=== PATIENT | female | born 1975 | race Caucasian/White ===

== ENCOUNTER 2021-10-03 10:47 | Inpatient (IN) | payer MEDICAID, OTHER ==
[~2021-10-03] VITALS: Ht 162.6 cm; Wt 73.2 kg
[~2021-10-03 10:47] MED LIST: BENZ1TAB10 PO; LURA80TA2 PO; RISP2TAB45 PO
[2021-10-03 12:35] LABS: BASOPHILS % (AUTO) 0.5 % (0.0-2.0); EOSINOPHILS % (AUTO) 0.2 % (1.0-6.0); LYMPHOCYTES # (AUTO) 2.6 K/uL (1.0-4.8); LYMPHOCYTES % (AUTO) 24.8 % (22.0-44.0); MEAN CORPUSCULAR HEMOGLOBIN 29.2 pg (26.0-34.0); MEAN CORPUSCULAR HGB CONC 34.3 G/dL (31.0-37.0); MEAN CORPUSCULAR VOLUME 85 fL (80-100); MONOCYTES # (AUTO) 0.8 K/uL (0.1-1.0); MONOCYTES % (AUTO) 8.1 % (2.0-9.0); NEUTROPHILS # (AUTO) 6.9 K/uL (1.8-7.7); NEUTROPHILS % (AUTO) 66.4 % (40.0-70.0); PLATELET COUNT (AUTO) 516 K/uL (150-450); RED BLOOD CELL COUNT(AUTO) 4.45 MIL/uL (4.00-5.20); RED CELL DISTRIBUTION WIDTH 15.7 % (11.5-14.5)
[2021-10-03 12:41] LABS: COVID AG,FIA SOURCE NASOPHARYNGEAL
[2021-10-03 12:43] LABS: ANION GAP 9 mmol/L (8-16); CALCIUM, TOTAL 9.4 mg/dL (8.8-10.5); CARBON DIOXIDE 25 mmol/L (22-29); CHLORIDE 106 mmol/L (98-107); CREATININE 1.03 mg/dL (0.60-1.30); GLOMERULAR FILTR. RATE CALC 58 mL/min (>60); GLUCOSE,RANDOM 113 mg/dL (70-110); POTASSIUM 3.8 mmol/L (3.5-5.1); SODIUM SERUM 140 mmol/L (136-145); UREA NITROGEN, BLOOD 12 mg/dL (7-18)
[2021-10-03 12:47] LABS: ACETAMINOPHEN < 2 mcg/mL (10-30)
[2021-10-03 12:54] LABS: ALANINE AMINOTRANSFERASE 65 U/L (12-78); ALKALINE PHOSPHATASE 83 U/L (46-116); ASPARTATE AMINOTRANSFERASE 42 U/L (15-37); BILIRUBIN,TOTAL 0.7 mg/dL (0.1-1.0); HCG,QUANTITATIVE < 1 mIU/mL (0-6); TOTAL PROTEIN, SERUM 8.1 g/dL (6.4-8.2)
[2021-10-03 12:56] LABS: SALICYLATE < 2.8 mg/dL (2.8-20.0)
[2021-10-03] MEDS ORDERED: BUSP5TAB20 PO (13:13)
[2021-10-03] MEDS ORDERED: TRAZ-252 PO (13:13)
[2021-10-03] MEDS ORDERED: PROP10TA73 PO (13:13)
[2021-10-03] MEDS ORDERED: BENZ2TAB10 PO (13:13)
[2021-10-03] MEDS ORDERED: HYDR-4808 PO (13:13)
[2021-10-03] MEDS ORDERED: HALOPERIDOL 5 MG TABLET PO ONE ×2 (13:30)
[2021-10-04 06:08] LABS: APPEARANCE,URINE SL CLOUDY (CLEAR); BILIRUBIN,URINE PRELIM. POSITIVE (NEGATIVE); GLUCOSE, URINE (UA) NEGATIVE (NEGATIVE); KETONES,URINE 40 mg/dL (NEGATIVE); LEUKOCYTE ESTERASE ,URINE NEGATIVE (NEGATIVE); NITRATE,URINE NEGATIVE (NEGATIVE); OCCULT BLOOD,URINE NEGATIVE (NEGATIVE); PROTEIN,URINE TRACE (NEGATIVE)
[2021-10-04 06:14] LABS: BACTERIA,URINE Few /HPF (None Seen); MUCUS,URINE Moderate LPF (None Seen); RBC,URINE 0-2 /HPF (0-2); SQUAMOUS EPITHELIAL CELL,UR Moderate /LPF (None Seen); WBC,URINE 0-2 /HPF (0-5)
[2021-10-04 06:41] LABS: AMPHET/METH SCREEN,URINE POSITIVE (NEGATIVE); BARBITURATE SCREEN, URINE NEGATIVE (NEGATIVE); BENZODIAZEPINES SCREEN,URINE NEGATIVE (NEGATIVE); CANNABINOID SCREEN,URINE POSITIVE (NEGATIVE); COCAINE SCREEN,URINE NEGATIVE (NEGATIVE); METHADONE SCREEN, URINE NEGATIVE (NEGATIVE); OPIATE SCREEN,URINE NEGATIVE (NEGATIVE)
[2021-10-04 06:47] LABS: PHENCYCLIDINE SCREEN,URINE NEGATIVE (NEGATIVE)
[2021-10-04 07:25] LABS: CHOL/HDL RATIO 3.7 (3.9-5.7); FREE T4 (FREE THYROXINE) 1.12 ng/dL (0.76-1.46); THYROID STIMULATING HORMONE 1.48 uIU/mL (0.36-3.74)
[2021-10-04] MEDS: LORazepam 2 MG TABLET PO PRN (17:35)
[2021-10-04] MEDS: HALOPERIDOL 5 MG TABLET PO PRN (17:35)
[2021-10-04 18:35] VITALS: BP 106/74
[2021-10-05] MEDS ORDERED: DOCUSATE SODIUM 100 MG CAPSULE PO PRN (07:15)
[2021-10-05] MEDS ORDERED: PETROLATUM,WHITE 28 GM JELLY TP PRN (07:15)
[2021-10-05] MEDS ORDERED: CloNIDine HCL 0.1 MG TABLET PO PRN (07:15)
[2021-10-05] MEDS ORDERED: ONDANSETRON HCL 4 MG TABLET PO PRN (07:15)
[2021-10-05] MEDS ORDERED: BENZOCAINE/MENTHOL LOZENGE PO PRN (07:15)
[2021-10-05] MEDS ORDERED: BACITRACIN 28 GM OINTMENT TP PRN (07:15)
[2021-10-05] MEDS ORDERED: LOPERAMIDE HCL 2 MG CAPSULE PO PRN (07:15)
[2021-10-05] MEDS ORDERED: ALBUTEROL SULFATE HFA 90 MCG/PUFF 8 GM INHALER IH PRN (07:15)
[2021-10-05] MEDS ORDERED: IBUPROFEN 600 MG TABLET PO PRN (07:15)
[2021-10-05] MEDS ORDERED: OMEPRAZOLE 20 MG CAPSULE PO PRN (07:15)
[2021-10-05] MEDS ORDERED: ACETAMINOPHEN 325 MG TABLET PO PRN (07:15)
[2021-10-05 08:00] VITALS: BP 111/76
[2021-10-05] MEDS: NICOTINE 21 MG/24 HOUR PATCH TD SCH (08:55)
[2021-10-05 17:16] VITALS: BP 102/68
[2021-10-05] MEDS: RisperiDONE MICROSPHERES 50 MG/2 ML SYRINGE IM SCH (18:15)
[2021-10-06] MEDS: NICOTINE 21 MG/24 HOUR PATCH TD SCH (08:25)
[2021-10-06 08:54] VITALS: BP 105/72
[2021-10-06 16:06] VITALS: BP 123/74
[2021-10-07 08:02] VITALS: BP 123/78
[2021-10-07] MEDS: ASPIRIN 81 MG DR TABLET PO SCH ×2 (10:52→16:06)
[2021-10-07] MEDS: NICOTINE 21 MG/24 HOUR PATCH TD SCH (10:53)
[2021-10-07 16:16] VITALS: BP 103/73
[2021-10-08 08:49] VITALS: BP 102/62
[2021-10-08] MEDS: ASPIRIN 81 MG DR TABLET PO SCH ×2 (09:00→16:22)
[2021-10-08] MEDS: NICOTINE 21 MG/24 HOUR PATCH TD SCH (09:01)
[2021-10-08 16:28] VITALS: BP 98/48
[2021-10-09 08:46] VITALS: BP 102/62
[2021-10-09] MEDS: NICOTINE 21 MG/24 HOUR PATCH TD SCH (09:00)
[2021-10-09] MEDS: ASPIRIN 81 MG DR TABLET PO SCH ×2 (09:00→16:10)
[2021-10-09] MEDS ORDERED: FLUCONAZOLE 150 MG TABLET PO ONE (10:00)
[2021-10-09 13:54] LABS: COVID AG,FIA SOURCE NASOPHARYNGEAL
[2021-10-09 16:58] VITALS: BP 155/63
[2021-10-09] MEDS: MAGNESIUM HYDROXIDE SUSPENSION 30 ML UDCUP PO PRN (17:45)
[2021-10-10] MEDS: ASPIRIN 81 MG DR TABLET PO SCH ×2 (08:47→16:12)
[2021-10-10] MEDS: NICOTINE 21 MG/24 HOUR PATCH TD SCH (08:47)
[2021-10-10 10:53] VITALS: BP 112/75
[2021-10-10] MEDS: MAGNESIUM HYDROXIDE SUSPENSION 30 ML UDCUP PO PRN (16:12)
[2021-10-10 16:55] VITALS: BP 99/69
[2021-10-11 08:00] VITALS: BP 132/82
[2021-10-11] MEDS: ASPIRIN 81 MG DR TABLET PO SCH ×2 (08:59→16:47)
[2021-10-11] MEDS: NICOTINE 21 MG/24 HOUR PATCH TD SCH (09:00)
[2021-10-11 16:00] VITALS: BP 116/70
[2021-10-11] MEDS: MAGNESIUM HYDROXIDE SUSPENSION 30 ML UDCUP PO PRN (17:07)
[2021-10-12 08:07] VITALS: BP 111/67
[2021-10-12] MEDS: ASPIRIN 81 MG DR TABLET PO SCH ×2 (09:46→16:09)
[2021-10-12] MEDS: NICOTINE 21 MG/24 HOUR PATCH TD SCH (09:47)
[2021-10-12 11:58] LABS: BASOPHILS % (AUTO) 0.4 % (0.0-2.0); EOSINOPHILS % (AUTO) 1.3 % (1.0-6.0); HEMATOCRIT 38.4 % (36-46); HEMOGLOBIN 12.9 g/dL (12.0-16.0); LYMPHOCYTES # (AUTO) 1.5 K/uL (1.0-4.8); LYMPHOCYTES % (AUTO) 21.3 % (22.0-44.0); MEAN CORPUSCULAR HEMOGLOBIN 29.2 pg (26.0-34.0); MEAN CORPUSCULAR HGB CONC 33.6 G/dL (31.0-37.0); MEAN CORPUSCULAR VOLUME 87 fL (80-100); MONOCYTES # (AUTO) 0.6 K/uL (0.1-1.0); MONOCYTES % (AUTO) 8.5 % (2.0-9.0); NEUTROPHILS % (AUTO) 68.5 % (40.0-70.0); PLATELET COUNT (AUTO) 363 K/uL (150-450); RED BLOOD CELL COUNT(AUTO) 4.42 MIL/uL (4.00-5.20); RED CELL DISTRIBUTION WIDTH 16.1 % (11.5-14.5)
[2021-10-12 12:41] LABS: ALANINE AMINOTRANSFERASE 71 U/L (12-78); ALBUMIN 3.8 g/dL (3.4-5.0); ALKALINE PHOSPHATASE 82 U/L (46-116); ANION GAP 9 mmol/L (8-16); ASPARTATE AMINOTRANSFERASE 27 U/L (15-37); BILIRUBIN,TOTAL 0.3 mg/dL (0.1-1.0); CALCIUM, TOTAL 9.3 mg/dL (8.8-10.5); CARBON DIOXIDE 25 mmol/L (22-29); CHLORIDE 104 mmol/L (98-107); CREATININE 0.78 mg/dL (0.60-1.30); GLOMERULAR FILTR. RATE CALC > 60 mL/min (>60); GLUCOSE,RANDOM 96 mg/dL (70-110); PHOSPHORUS 5.3 mg/dL (2.5-4.9); POTASSIUM 4.7 mmol/L (3.5-5.1); SODIUM SERUM 138 mmol/L (136-145); UREA NITROGEN, BLOOD 11 mg/dL (7-18)
[2021-10-12 16:21] VITALS: BP 125/85
[2021-10-12] MEDS: ZOLPIDEM TARTRATE 10 MG TABLET PO PRN (20:38)
[2021-10-13 08:05] VITALS: BP 109/75
[2021-10-13] MEDS: NICOTINE 21 MG/24 HOUR PATCH TD SCH (09:20)
[2021-10-13] MEDS: ASPIRIN 81 MG DR TABLET PO SCH ×2 (09:20→17:00)
[2021-10-13] MEDS: MAG HYDROX/AL HYDROX/SIMETH ES 30 ML SUSPENSION UDCUP PO PRN (14:52)
[2021-10-13 16:43] VITALS: BP 134/76
[2021-10-13] MEDS: ZOLPIDEM TARTRATE 10 MG TABLET PO PRN (20:35)
[2021-10-14 08:15] VITALS: BP 105/66
[2021-10-14] MEDS: NICOTINE 21 MG/24 HOUR PATCH TD SCH (08:51)
[2021-10-14] MEDS: ASPIRIN 81 MG DR TABLET PO SCH ×2 (08:51→16:37)
[2021-10-14] MEDS: MAGNESIUM HYDROXIDE SUSPENSION 30 ML UDCUP PO PRN (09:56)
[2021-10-14 16:42] VITALS: BP 109/79
[2021-10-14] MEDS: ZOLPIDEM TARTRATE 10 MG TABLET PO PRN (20:57)
[2021-10-15 08:00] VITALS: BP 109/69
[2021-10-15] MEDS: ASPIRIN 81 MG DR TABLET PO SCH ×2 (08:22→16:27)
[2021-10-15] MEDS: NICOTINE 21 MG/24 HOUR PATCH TD SCH (08:22)
[2021-10-15 16:42] VITALS: BP 109/69
[2021-10-15] MEDS: ZOLPIDEM TARTRATE 10 MG TABLET PO PRN (20:34)
[2021-10-16 08:11] VITALS: BP 86/52
[2021-10-16] MEDS: ASPIRIN 81 MG DR TABLET PO SCH ×2 (08:36→16:30)
[2021-10-16] MEDS: NICOTINE 21 MG/24 HOUR PATCH TD SCH (08:37)
[2021-10-16 16:00] VITALS: BP 123/78
[2021-10-16 17:54] LABS: COVID AG,FIA SOURCE NASOPHARYNGEAL
[2021-10-17] MEDS: ASPIRIN 81 MG DR TABLET PO SCH ×2 (08:32→16:08)
[2021-10-17] MEDS: NICOTINE 21 MG/24 HOUR PATCH TD SCH (08:33)
[2021-10-17 08:55] VITALS: BP 97/61
[2021-10-17 16:00] VITALS: BP 99/59
[2021-10-17] MEDS: ZOLPIDEM TARTRATE 10 MG TABLET PO PRN (20:02)
[2021-10-18 09:19] VITALS: BP 106/63
[2021-10-18] MEDS: ASPIRIN 81 MG DR TABLET PO SCH ×2 (10:06→16:19)
[2021-10-18] MEDS: NICOTINE 21 MG/24 HOUR PATCH TD SCH (10:07)
[2021-10-18] MEDS: MAG HYDROX/AL HYDROX/SIMETH ES 30 ML SUSPENSION UDCUP PO PRN (13:29)
[2021-10-18 16:47] VITALS: BP 112/71
[2021-10-18] MEDS: ZOLPIDEM TARTRATE 10 MG TABLET PO PRN (20:37)
[2021-10-19 09:32] VITALS: BP 104/56
[2021-10-19] MEDS: ASPIRIN 81 MG DR TABLET PO SCH ×2 (09:47→17:19)
[2021-10-19] MEDS: NICOTINE 21 MG/24 HOUR PATCH TD SCH (09:47)
[2021-10-19] MEDS: RisperiDONE MICROSPHERES 50 MG/2 ML SYRINGE IM SCH (09:52)
[2021-10-19 16:39] VITALS: BP 105/64
[2021-10-20] MEDS: ASPIRIN 81 MG DR TABLET PO SCH ×2 (08:18→17:17)
[2021-10-20] MEDS: NICOTINE 21 MG/24 HOUR PATCH TD SCH (08:19)
[2021-10-20] MEDS: MAGNESIUM HYDROXIDE SUSPENSION 30 ML UDCUP PO PRN (08:31)
[2021-10-20 09:00] VITALS: BP 99/61
[2021-10-20] MEDS: ZOLPIDEM TARTRATE 10 MG TABLET PO PRN (21:10)
[2021-10-20 23:47] LABS: COVID AG,FIA SOURCE NASAL SWAB
[2021-10-21 08:00] VITALS: BP 103/55
[2021-10-21] MEDS: ASPIRIN 81 MG DR TABLET PO SCH ×2 (09:29→16:54)
[2021-10-21] MEDS: NICOTINE 21 MG/24 HOUR PATCH TD SCH (09:29)
[2021-10-21 17:38] VITALS: BP 115/62
[2021-10-21] MEDS: ZOLPIDEM TARTRATE 10 MG TABLET PO PRN (20:48)
[2021-10-22] MEDS: ASPIRIN 81 MG DR TABLET PO SCH ×2 (08:49→17:01)
[2021-10-22] MEDS: NICOTINE 21 MG/24 HOUR PATCH TD SCH (08:49)
[2021-10-22 09:36] VITALS: BP 129/70
[2021-10-22 16:56] VITALS: BP 109/72
[2021-10-22] MEDS: ZOLPIDEM TARTRATE 10 MG TABLET PO PRN (20:31)
[2021-10-23] MEDS: ASPIRIN 81 MG DR TABLET PO SCH ×2 (08:06→16:55)
[2021-10-23] MEDS: NICOTINE 21 MG/24 HOUR PATCH TD SCH (08:06)
[2021-10-23] MEDS: MAGNESIUM HYDROXIDE SUSPENSION 30 ML UDCUP PO PRN (16:55)
[2021-10-23 16:59] VITALS: BP 102/59
[2021-10-23] MEDS: ZOLPIDEM TARTRATE 10 MG TABLET PO PRN (20:27)
[2021-10-24 08:00] VITALS: BP 119/82
[2021-10-24] MEDS: ASPIRIN 81 MG DR TABLET PO SCH ×2 (08:03→17:13)
[2021-10-24] MEDS: NICOTINE 21 MG/24 HOUR PATCH TD SCH (08:04)
[2021-10-24 17:00] VITALS: BP 119/77
[2021-10-24] MEDS: HALOPERIDOL 5 MG TABLET PO PRN (18:05)
[2021-10-24] MEDS: LORazepam 2 MG TABLET PO PRN (18:05)
[2021-10-24] MEDS: ZOLPIDEM TARTRATE 10 MG TABLET PO PRN (20:23)
[2021-10-25 08:00] VITALS: BP 109/71
[2021-10-25] MEDS: ASPIRIN 81 MG DR TABLET PO SCH ×2 (09:02→16:13)
[2021-10-25] MEDS: NICOTINE 21 MG/24 HOUR PATCH TD SCH (09:03)
[2021-10-25 16:39] VITALS: BP 112/76
[2021-10-25] MEDS: MAGNESIUM HYDROXIDE SUSPENSION 30 ML UDCUP PO PRN (17:10)
[2021-10-25] MEDS: ZOLPIDEM TARTRATE 10 MG TABLET PO PRN (20:05)
[2021-10-26 08:00] VITALS: BP 98/58
[2021-10-26] MEDS: NICOTINE 21 MG/24 HOUR PATCH TD SCH (09:06)
[2021-10-26] MEDS: ASPIRIN 81 MG DR TABLET PO SCH ×2 (09:08→16:13)
[2021-10-26 16:00] VITALS: BP 100/63
[2021-10-26] MEDS: ZOLPIDEM TARTRATE 10 MG TABLET PO PRN (20:08)
[2021-10-27] MEDS: ASPIRIN 81 MG DR TABLET PO SCH ×2 (08:21→16:03)
[2021-10-27] MEDS: NICOTINE 21 MG/24 HOUR PATCH TD SCH (08:21)
[2021-10-27 09:43] VITALS: BP 102/57
[2021-10-27 13:50] LABS: COVID AG,FIA SOURCE NASAL SWAB
[2021-10-27 15:16] LABS: APPEARANCE,URINE CLEAR (CLEAR); BILIRUBIN,URINE NEGATIVE (NEGATIVE); GLUCOSE, URINE (UA) NEGATIVE (NEGATIVE); KETONES,URINE NEGATIVE (NEGATIVE); LEUKOCYTE ESTERASE ,URINE NEGATIVE (NEGATIVE); NITRATE,URINE NEGATIVE (NEGATIVE); OCCULT BLOOD,URINE NEGATIVE (NEGATIVE); PH,URINE 7.5 (5.0-8.0); PROTEIN,URINE NEGATIVE (NEGATIVE); UROBILINOGEN,URINE 0.2 mg/dL (<=1.0)
[2021-10-27 16:18] VITALS: BP 116/80
[2021-10-27] MEDS: ZOLPIDEM TARTRATE 10 MG TABLET PO PRN (20:29)
[2021-10-28 06:16] LABS: BASOPHILS % (AUTO) 0.6 % (0.0-2.0); EOSINOPHILS % (AUTO) 2.1 % (1.0-6.0); HEMATOCRIT 33.5 % (36-46); HEMOGLOBIN 11.7 g/dL (12.0-16.0); LYMPHOCYTES # (AUTO) 1.6 K/uL (1.0-4.8); LYMPHOCYTES % (AUTO) 23.7 % (22.0-44.0); MEAN CORPUSCULAR HEMOGLOBIN 29.8 pg (26.0-34.0); MEAN CORPUSCULAR HGB CONC 34.9 G/dL (31.0-37.0); MEAN CORPUSCULAR VOLUME 86 fL (80-100); MONOCYTES # (AUTO) 0.4 K/uL (0.1-1.0); MONOCYTES % (AUTO) 5.8 % (2.0-9.0); NEUTROPHILS # (AUTO) 4.7 K/uL (1.8-7.7); NEUTROPHILS % (AUTO) 67.8 % (40.0-70.0); PLATELET COUNT (AUTO) 409 K/uL (150-450); RED BLOOD CELL COUNT(AUTO) 3.92 MIL/uL (4.00-5.20); RED CELL DISTRIBUTION WIDTH 15.6 % (11.5-14.5)
[2021-10-28 06:39] LABS: ANION GAP 7 mmol/L (8-16); CALCIUM, TOTAL 8.7 mg/dL (8.8-10.5); CARBON DIOXIDE 28 mmol/L (22-29); CHLORIDE 103 mmol/L (98-107); CREATININE 0.84 mg/dL (0.60-1.30); GLOMERULAR FILTR. RATE CALC > 60 mL/min (>60); GLUCOSE,RANDOM 106 mg/dL (70-110); POTASSIUM 4.1 mmol/L (3.5-5.1); SODIUM SERUM 138 mmol/L (136-145); UREA NITROGEN, BLOOD 11 mg/dL (7-18)
[2021-10-28] MEDS: ASPIRIN 81 MG DR TABLET PO SCH (08:17)
[2021-10-28] MEDS: NICOTINE 21 MG/24 HOUR PATCH TD SCH (08:18)
[2021-10-28 08:59] VITALS: BP 113/73
[2021-10-28 13:00] LABS: COVID AG,FIA SOURCE NASOPHARYNGEAL
[2021-10-28] MEDS ORDERED: RISPC50 IM (13:11)
[2021-10-28] MEDS ORDERED: ASPI-1450 PO (14:00)
[2021-10-28] MEDS ORDERED: ASPIRIN 81 MG CHEWABLE TABLET PO SCH (17:00)
[2021-10-28] MEDS ORDERED: ASPI-1444 PO (22:19)
== END 2021-10-28 15:00 | disposition home or self-care (01) | DRG 750 ==
LOC: EMS 10:50 → 3EI 10-04 14:12
PROVIDERS: ADMIT Psychiatry & Neurology Psychiatry; ATTEND Psychiatry & Neurology Psychiatry
DX: F25.9 Schizoaffective disorder, unspecified (principal); R45.851 Suicidal ideations; Z20.822 Contact with and (suspected) exposure to COVID-19; F15.10 Other stimulant abuse, uncomplicated; F32.A Depression, unspecified; R00.0 Tachycardia, unspecified; F41.9 Anxiety disorder, unspecified; G47.00 Insomnia, unspecified; K59.00 Constipation, unspecified; N89.8 Other specified noninflammatory disorders of vagina; F17.210 Nicotine dependence, cigarettes, uncomplicated; Z79.899 Other long term (current) drug therapy
CPT/HCPCS: 80048; 80053; 80061; 81001; 81003; 83735; 84100; 84439; 84443; 84702; 85025; 86592; 87081; 87491; 87591; 93005; 99285; G0480; G0481; J2794

== ENCOUNTER 2023-04-05 22:34 | Emergency (ER) | payer MEDICAID ==
[~2023-04-05] VITALS: Ht 162.6 cm; Wt 72.0 kg
[~2023-04-05 22:34] MED LIST changes: +ASPI-1444 PO; +ASPI-1450 PO; -BENZ1TAB10 PO; -LURA80TA2 PO; -RISP2TAB45 PO; +RISPC50 IM
[2023-04-06 03:52] VITALS: TEMP 98.2
[2023-04-06] MEDS ORDERED: LORazepam 2 MG TABLET PO ONE (04:15)
[2023-04-06 04:23] LABS: BASOPHILS % (AUTO) 0.5 % (0.0-2.0); EOSINOPHILS % (AUTO) 1.2 % (1.0-6.0); HEMATOCRIT 32.9 % (36-46); HEMOGLOBIN 10.8 g/dL (12.0-16.0); LYMPHOCYTES # (AUTO) 2.4 K/uL (1.0-4.8); MEAN CORPUSCULAR HEMOGLOBIN 27.7 pg (26.0-34.0); MEAN CORPUSCULAR HGB CONC 32.7 G/dL (31.0-37.0); MEAN CORPUSCULAR VOLUME 85 fL (80-100); MONOCYTES # (AUTO) 0.9 K/uL (0.1-1.0); MONOCYTES % (AUTO) 9.5 % (2.0-9.0); NEUTROPHILS # (AUTO) 5.6 K/uL (1.8-7.7); NEUTROPHILS % (AUTO) 61.8 % (40.0-70.0); PLATELET COUNT (AUTO) 390 K/uL (150-450); RED BLOOD CELL COUNT(AUTO) 3.88 MIL/uL (4.00-5.20); RED CELL DISTRIBUTION WIDTH 14.8 % (11.5-14.5)
[2023-04-06 04:31] LABS: ANION GAP 10 mmol/L (8-16); CALCIUM, TOTAL 8.9 mg/dL (8.8-10.5); CARBON DIOXIDE 25 mmol/L (22-29); CHLORIDE 101 mmol/L (98-107); CREATININE 0.75 mg/dL (0.60-1.30); GLOMERULAR FILTR. RATE CALC > 60 mL/min (>60); GLUCOSE,RANDOM 107 mg/dL (70-110); POTASSIUM 4.3 mmol/L (3.5-5.1); SODIUM SERUM 136 mmol/L (136-145)
[2023-04-06 04:42] LABS: ALANINE AMINOTRANSFERASE 13 U/L (12-78); ALBUMIN 3.7 g/dL (3.4-5.0); ALKALINE PHOSPHATASE 73 U/L (46-116); ASPARTATE AMINOTRANSFERASE 13 U/L (15-37); BILIRUBIN,TOTAL 0.3 mg/dL (0.1-1.0); HCG,QUANTITATIVE < 1 mIU/mL (0-6); TOTAL PROTEIN, SERUM 7.4 g/dL (6.4-8.2)
[2023-04-06 08:08] LABS: COVID AG,FIA SOURCE NASOPHARYNGEAL
[2023-04-06 09:39] VITALS: BP 113/78; PULSE 87; RESP 19
== END 2023-04-06 10:39 | disposition home or self-care (01) ==
LOC: EMS 22:35
DX: F41.9 Anxiety disorder, unspecified (principal); F20.9 Schizophrenia, unspecified; F17.210 Nicotine dependence, cigarettes, uncomplicated; F15.90 Other stimulant use, unspecified, uncomplicated; Z20.822 Contact with and (suspected) exposure to COVID-19
CPT/HCPCS: 99283; 87426; 80053; 84702; 85025; G0480

== ENCOUNTER 2024-12-24 09:38 | Emergency (ER) | payer MEDICAID, OTHER ==
[~2024-12-24] VITALS: Ht 175.3 cm; Wt 95.4 kg
[~2024-12-24 09:38] MED LIST changes: -ASPI-1444 PO
[2024-12-24 10:05] VITALS: BP 145/86; PULSE 109; RESP 20; TEMP 97.5; O2SAT 99
[2024-12-24] MEDS: RisperiDONE MICROSPHERES 50 MG/2 ML SYRINGE IM ONE (11:57)
== END 2024-12-24 12:31 | disposition home or self-care (01) ==
LOC: EMS 09:38
DX: F20.0 Paranoid schizophrenia (principal); Z79.82 Long term (current) use of aspirin; F17.210 Nicotine dependence, cigarettes, uncomplicated
CPT/HCPCS: 99284; 96372; J2794; 99283

== ENCOUNTER 2024-12-26 05:17 | Inpatient (IN) | payer MEDICAID, OTHER ==
[~2024-12-26] VITALS: Ht 177.8 cm; Wt 91.6 kg
[2024-12-26] MEDS ORDERED: LORazepam 2 MG/ML VIAL ONE (05:38)
[2024-12-26] MEDS ORDERED: HALOPERIDOL LACTATE 5 MG/ML VIAL ONE (05:38)
[2024-12-26] MEDS: LORazepam 2 MG/ML VIAL IM ONE (05:45)
[2024-12-26] MEDS: HALOPERIDOL LACTATE 5 MG/ML VIAL IM ONE (05:46)
[2024-12-26] MEDS: DiphenhydrAMINE HCL 50 MG/ML VIAL IM ONE (05:47)
[2024-12-26 05:55] LABS: COVID AG,FIA SOURCE NASAL SWAB
[2024-12-26 06:06] LABS: SARS-COV2 (COVID) ANTIGEN,FIA Negative (Negative)
[2024-12-26] MEDS ORDERED: ZOLPIDEM TARTRATE 10 MG TABLET PO PRN (06:30)
[2024-12-26] MEDS ORDERED: LORazepam 2 MG TABLET PO PRN ×2 (06:30→07:45)
[2024-12-26] MEDS ORDERED: HALOPERIDOL 5 MG TABLET PO PRN ×2 (06:30→07:45)
[2024-12-26 07:48] LABS: BASOPHILS % (AUTO) 0.1 % (0.0-2.0); EOSINOPHILS % (AUTO) 0.1 % (1.0-6.0); HEMATOCRIT 36.7 % (36-46); HEMOGLOBIN 11.7 g/dL (12.0-16.0); LYMPHOCYTES # (AUTO) 1.4 K/uL (1.0-4.8); MEAN CORPUSCULAR HGB CONC 31.8 G/dL (31.0-37.0); MEAN CORPUSCULAR VOLUME 88 fL (80-100); MONOCYTES # (AUTO) 1.2 K/uL (0.1-1.0); NEUTROPHILS # (AUTO) 17.4 K/uL (1.8-7.7); PLATELET COUNT (AUTO) 400 K/uL (150-450); RED BLOOD CELL COUNT(AUTO) 4.17 MIL/uL (4.00-5.20); RED CELL DISTRIBUTION WIDTH 15.5 % (11.5-14.5)
[2024-12-26 07:51] LABS: ANION GAP 17 mmol/L (8-16); CALCIUM, TOTAL 8.7 mg/dL (8.8-10.5); CARBON DIOXIDE 20 mmol/L (22-29); CHLORIDE 101 mmol/L (98-107); CREATININE 1.12 mg/dL (0.60-1.30); GLOMERULAR FILTR. RATE CALC 52 mL/min (>60); GLUCOSE,RANDOM 88 mg/dL (70-110); SODIUM SERUM 138 mmol/L (136-145); UREA NITROGEN, BLOOD 13 mg/dL (7-18)
[2024-12-26 07:53] LABS: NEUTROPHILS % (AUTO) 86.8 % (40.0-70.0)
[2024-12-26 07:54] LABS: POTASSIUM 2.9 mmol/L (3.5-5.1)
[2024-12-26 08:16] LABS: ALCOHOL, BLOOD (SERUM) < 3 mg/dL (0-10)
[2024-12-26] MEDS: POTASSIUM CHLORIDE 10% 40 MEQ/30 ML LIQUID UDCUP PO ONE (09:05)
[2024-12-26 09:11] LABS: PH,URINE DRUG SCREEN 5.5 (5.0-8.0)
[2024-12-26 09:26] LABS: ALCOHOL, URINE DRUG SCREEN NEGATIVE (NEGATIVE); AMPHET/METH SCREEN,URINE POSITIVE (NEGATIVE); BARBITURATE SCREEN, URINE NEGATIVE (NEGATIVE); BENZODIAZEPINES SCREEN,URINE POSITIVE (NEGATIVE); CANNABINOID SCREEN,URINE POSITIVE (NEGATIVE); COCAINE SCREEN,URINE NEGATIVE (NEGATIVE); METHADONE SCREEN, URINE NEGATIVE (NEGATIVE); OPIATE SCREEN,URINE NEGATIVE (NEGATIVE); PHENCYCLIDINE SCREEN,URINE NEGATIVE (NEGATIVE)
[2024-12-26 09:48] LABS: APPEARANCE,URINE CLEAR (CLEAR); BILIRUBIN,URINE NEGATIVE (NEGATIVE); COLOR,URINE LIGHT YELLOW (YELLOW); GLUCOSE, URINE (UA) NEGATIVE (NEGATIVE); KETONES,URINE 40-60 mg/dL (NEGATIVE); LEUKOCYTE ESTERASE ,URINE NEGATIVE (NEGATIVE); NITRATE,URINE NEGATIVE (NEGATIVE); OCCULT BLOOD,URINE MODERATE (NEGATIVE); PH,URINE 5.5 (5.0-8.0); PROTEIN,URINE 30-70 mg/dL (NEGATIVE); SPECIFIC GRAVITIY, URINE 1.013 (1.003-1.030); UROBILINOGEN,URINE <=1.0 mg/dL (<=1.0)
[2024-12-26 09:52] LABS: BACTERIA,URINE None Seen /HPF (None Seen); SQUAMOUS EPITHELIAL CELL,UR Few /LPF (None Seen); WBC,URINE None Seen /HPF (0-5)
[2024-12-26 11:04] VITALS: O2SAT 99
[2024-12-26] MEDS: SODIUM CHLORIDE 0.9% 500 ML IV ONE ×2 (11:05→11:09)
[2024-12-26 11:40] LABS: BASOPHILS % (AUTO) 0.1 % (0.0-2.0); EOSINOPHILS % (AUTO) 0 % (1.0-6.0); HEMATOCRIT 32.6 % (36-46); HEMOGLOBIN 10.5 g/dL (12.0-16.0); LYMPHOCYTES # (AUTO) 1.3 K/uL (1.0-4.8); LYMPHOCYTES % (AUTO) 8.6 % (22.0-44.0); MEAN CORPUSCULAR HGB CONC 32.3 G/dL (31.0-37.0); MEAN CORPUSCULAR VOLUME 87 fL (80-100); MONOCYTES # (AUTO) 1.3 K/uL (0.1-1.0); MONOCYTES % (AUTO) 8.4 % (2.0-9.0); NEUTROPHILS # (AUTO) 12.3 K/uL (1.8-7.7); NEUTROPHILS % (AUTO) 82.9 % (40.0-70.0); PLATELET COUNT (AUTO) 352 K/uL (150-450); RED BLOOD CELL COUNT(AUTO) 3.75 MIL/uL (4.00-5.20); RED CELL DISTRIBUTION WIDTH 15.2 % (11.5-14.5); WHITE BLOOD COUNT (AUTO) 14.9 K/uL (4.5-11.0)
[2024-12-26 11:47] LABS: ANION GAP 10 mmol/L (8-16); CALCIUM, TOTAL 7.8 mg/dL (8.8-10.5); CARBON DIOXIDE 22 mmol/L (22-29); CHLORIDE 106 mmol/L (98-107); GLOMERULAR FILTR. RATE CALC > 60 mL/min (>60); GLUCOSE,RANDOM 80 mg/dL (70-110); POTASSIUM 3.8 mmol/L (3.5-5.1); SODIUM SERUM 138 mmol/L (136-145); UREA NITROGEN, BLOOD 13 mg/dL (7-18)
[2024-12-26 17:23] VITALS: BP 100/60; PULSE 90; RESP 18; TEMP 97.5; O2SAT 97
[2024-12-26] MEDS ORDERED: INFLUENZA VIRUS VACCINE TVS (6MO+) 2024-25/PF 45 MCG/0.5 ML SYRINGE IM. ONE (19:30)
[2024-12-26 20:24] VITALS: RESP 18
[2024-12-27 08:09] VITALS: BP 100/62; PULSE 123; RESP 17; TEMP 97.4; O2SAT 97
[2024-12-27 10:00] VITALS: BP 133/81; PULSE 106; RESP 18; O2SAT 98
[2024-12-27 15:18] VITALS: PULSE 97
[2024-12-27] MEDS ORDERED: MAG HYDROX/ALUMINUM HYD/SIMETH ES 30 ML SUSPENSION UDCUP PO PRN (19:45)
[2024-12-27] MEDS ORDERED: CloNIDine HCL 0.1 MG TABLET PO PRN (19:45)
[2024-12-27] MEDS ORDERED: IBUPROFEN 600 MG TABLET PO PRN (19:45)
[2024-12-27] MEDS ORDERED: ONDANSETRON 4 MG TABLET PO PRN (19:45)
[2024-12-27] MEDS ORDERED: MAGNESIUM HYDROXIDE SUSPENSION 30 ML UDCUP PO PRN (19:45)
[2024-12-27] MEDS ORDERED: PETROLATUM,WHITE 28 GM JELLY TP PRN (19:45)
[2024-12-27] MEDS ORDERED: DOCUSATE SODIUM 100 MG CAPSULE PO PRN (19:45)
[2024-12-27] MEDS ORDERED: BENZOCAINE/MENTHOL [CEPACOL] LOZENGE PO PRN (19:45)
[2024-12-27] MEDS ORDERED: LOPERAMIDE HCL 2 MG CAPSULE PO PRN (19:45)
[2024-12-27] MEDS ORDERED: ACETAMINOPHEN 325 MG TABLET PO PRN (19:45)
[2024-12-27] MEDS ORDERED: ALBUTEROL SULFATE HFA 90 MCG/PUFF 8 GM INHALER IH PRN (19:45)
[2024-12-27] MEDS ORDERED: OMEPRAZOLE 20 MG CAPSULE PO PRN (19:45)
[2024-12-27 20:30] VITALS: BP 109/65; PULSE 90; RESP 17; TEMP 98; O2SAT 97
[2024-12-28 08:26] VITALS: RESP 16
[2024-12-28] MEDS: BACITRACIN 28 GM OINTMENT TP PRN (13:00)
[2024-12-28] MEDS ORDERED: RisperiDONE MICROSPHERES 50 MG/2 ML SYRINGE IM SCH ×2 (16:45)
[2024-12-28] MEDS ORDERED: RISPC50 IM (17:30)
[2024-12-28 20:28] VITALS: BP 109/59; PULSE 79; RESP 16; TEMP 98.2; O2SAT 97
[2024-12-28] MEDS: ZOLPIDEM TARTRATE 10 MG TABLET PO PRN (20:48)
[2024-12-29 09:18] VITALS: BP 90/51; PULSE 91; RESP 18; TEMP 98.2; O2SAT 97
[2025-01-10] MEDS ORDERED: RisperiDONE MICROSPHERES 50 MG/2 ML SYRINGE IM SCH (09:00)
== END 2024-12-29 10:00 | disposition home or self-care (01) | DRG 750 ==
LOC: EMS 05:30 → EDBEDREQSVC 14:23 → B3A 15:08
PROVIDERS: ADMIT Psychiatry & Neurology Psychiatry; ATTEND Psychiatry & Neurology Psychiatry
DX: F20.0 Paranoid schizophrenia (principal); F15.90 Other stimulant use, unspecified, uncomplicated; F19.10 Other psychoactive substance abuse, uncomplicated; Z20.822 Contact with and (suspected) exposure to COVID-19; G47.00 Insomnia, unspecified; K59.00 Constipation, unspecified; Z87.891 Personal history of nicotine dependence
CPT/HCPCS: 80048; 80307; 81001; 84703; 85025; 96360; 96372; 99285; G0480; J1630; J2060; 36415-L1; 36415-TC